=== PATIENT | female | born 1990 | race Caucasian/White ===

== ENCOUNTER 2016-11-01 09:08 | Day surgery (SDC) | payer OTHER ==
[~2016-11-01] VITALS: Ht 167.6 cm; Wt 89.7 kg
[2016-11-01] VITALS (14 sets, daily range): BP systolic 83–111; BP diastolic 34–58; PULSE 58–80; RESP 16–29; Ht 167.6 cm; Wt 89.7 kg
[2016-11-01] MEDS ORDERED: SULF1TAB31 PO (09:55)
[2016-11-01 10:45] LABS: BASOPHILS % 0.3 % (0.0-2.0); EOSINOPHILS % 0.3 % (0.0-7.0); HEMATOCRIT 34.5 % (37.0-47.0); HEMOGLOBIN 11.3 g/dl (12.0-16.0); LYMPHOCYTES # 2.8 10^3/ul (0.8-2.9); LYMPHOCYTES % 31.9 % (15.0-51.0); MEAN CORPUSCULAR HGB CONC 32.8 g/dl (32.0-37.0); MEAN CORPUSCULAR VOLUME 85.6 fl (82.0-101.0); MEAN PLATELET VOLUME 10.6 fl (7.4-10.4); MONOCYTE # 0.5 10^3/ul (0.3-0.9); MONOCYTES % 5.4 % (0.0-11.0); NEUTROPHIL # 5.4 10^3/ul (1.6-7.5); NEUTROPHILS % 61.8 % (39.0-77.0); PLATELET COUNT 307 10^3/UL (140-415); RED BLOOD COUNT 4.03 10^6/ul (4.20-5.40); RED CELL DISTRIBUTION WIDTH 13.1 % (11.5-14.5); WHITE BLOOD COUNT 8.8 10^3/ul (4.8-10.8)
[2016-11-01 10:48] LABS: ADD UMIC NO; UR ASCORBIC ACID NEGATIVE (NEGATIVE); UR BILIRUBIN (Dip) NEGATIVE (NEGATIVE); UR BLOOD (Dip) NEGATIVE (NEGATIVE); UR CLARITY CLEAR (CLEAR); UR COLOR YELLOW (YELLOW); UR GLUCOSE (Dip) NEGATIVE (NEGATIVE); UR KETONES (Dip) NEGATIVE (NEGATIVE); UR LEUKOCYTE ESTERASE (Dip) NEGATIVE Leu/ul (NEGATIVE); UR NITRITE (Dip) NEGATIVE (NEGATIVE); UR TOTAL PROTEIN (Dip) NEGATIVE (NEGATIVE); UR UROBILINOGEN (Dip) NEGATIVE (NEGATIVE)
[2016-11-01 10:59] LABS: INR 1.01; PROTIME 13.3 Sec (12.2-14.2)
[2016-11-01 11:02] LABS: ALBUMIN 4.2 g/dl (3.3-4.9); ALBUMIN/GLOBULIN RATIO 1.13; BILIRUBIN,INDIRECT 0.2 mg/dl (0-1.1); BILIRUBIN,TOTAL 0.2 mg/dl (0.2-1.3); TOTAL PROTEIN 7.9 g/dl (6.1-8.1)
[2016-11-01 11:21] LABS: CALCIUM 9.3 mg/dl (8.4-10.2); CREATININE 0.63 mg/dl (0.44-1.00); POTASSIUM 3.8 mmol/L (3.5-5.1)
[2016-11-01] MEDS ORDERED: PROPOFOL 20 ML ONE (12:25)
[2016-11-01] MEDS ORDERED: ONDANSETRON 4 MG INJ ONE (12:25)
[2016-11-01] MEDS ORDERED: METOCLOPRAMIDE 10 MG INJ ONE (12:25)
[2016-11-01] MEDS ORDERED: MEPERIDINE 100 MG INJ ONE (12:25)
[2016-11-01] MEDS ORDERED: LIDOCAINE 2% (SDV) 5 ML INJ ONE (12:25)
[2016-11-01] MEDS ORDERED: LIDOCAINE 1% (MPF) 30 ML INJ ONE (13:06)
[2016-11-01] MEDS ORDERED: CEFAZOLIN 1 GM INJ ONE (13:07)
[2016-11-01] MEDS ORDERED: KETOROLAC 30 MG INJ IV STA ×2 (13:50→13:55)
--- NOTE | 2016-11-01 13:59 | QN ---
Documentation Comment Toradol 30 mg before discharge from [facility] TATE ANAYA MD Nov 01, 2016 13:59
[2016-11-01] MEDS ORDERED: FENTAnyl 50 MCG/ML VIAL IV PRN ×3 (14:00)
[2016-11-01] MEDS ORDERED: ONDANSETRON 4 MG INJ IV PRN (14:00)
[2016-11-01] MEDS ORDERED: HYDROmorphONE (0.2 MG/ML) 10ML SYG IV PRN ×3 (14:00)
[2016-11-01] MEDS ORDERED: DIPHENHYDRAMINE 50 MG INJ IV PRN (14:00)
[2016-11-01] MEDS ORDERED: METOCLOPRAMIDE 10 MG INJ IV PRN (14:00)
[2016-11-01] MEDS ORDERED: MIDAZOLAM 1 MG/ML 2 ML INJ IV PRN (14:00)
[2016-11-01] MEDS ORDERED: MEPERIDINE 25 MG INJ IV PRN (14:00)
[2016-11-01] MEDS ORDERED: OXYCODONE/ACETAMINOPHEN (5/325) TAB PO PRN ×2 (14:00)
--- NOTE | 2016-11-01 14:20 | OPR ---
Date/Time of Note Date/Time of Note DATE: 11/01/16 TIME: 14:05 Operative Report Free Text/Dictation 26 years old admitted for right Bartholin gland abscess Preoperative Diagnosis Right Bartholin gland abscess Postoperative Diagnosis Same as above Operation/Procedure Performed Marsupialization of right Bartholin abscess Under general anesthesia patient prepped and draped and placed in dorsal lithotomy position bimanual pelvic examination normal measures introitus right Bartholin gland inflamed and enlarged size of a golf ball left Bartholin gland seems to be normal The opening of the abscess was enlarged with a Taylor clamp for ciliated more drainage of the pus inside of the cavity irrigated with warm saline and adhesion inside of the taken down by finger inside of the gland irrigated more with warm saline, age of opening of the Bartholin cyst which was through the site 1 cm x 1 cm suture with interrupted 3-0 Monocryl approximate 3 mm apart at the end of the procedure there was no bleeding , the cavity was packed with quarter of inch packing, patient tolerated procedure well transferred to recovery room in good condition Surgeon: TATE ANAYA MD Anesthesia: general Estimated Blood Loss: 0 - 10 ml's Complications: None TATE ANAYA MD Nov 01, 2016 14:16
--- NOTE | 2016-11-02 06:22 | OPR ---
DATE OF OPERATION: 11/01/2016 PREOPERATIVE DIAGNOSIS: Right Bartholin abscess. POSTOPERATIVE DIAGNOSIS: Right Bartholin abscess. OPERATION PERFORMED: Marsupialization of the right Bartholin gland. SURGEON: MD Malachi. APARTMENT GROUNDSKEEPER: Gibran. ANESTHESIA: General. ANESTHESIOLOGIST: Dr. Barron. OPERATIVE PROCEDURE: Under satisfactory general anesthesia, patient prepped and draped and placed peripherally toward the mid position. On pelvic examination, the right Bartholin abscess was noted, which was approximately 3-4 cm, and it had some pus draining. The left side was normal. Procedure began by irrigating the inside of the Bartholin cyst and draining all the pus from the cavity. Then the edge of the Bartholin gland was sutured with interrupted 3-4 mm apart with 3-0 Monocryl. At the end of procedure, quarter-inch drain was inserted inside of the Bartholin cavity. ESTIMATED BLOOD LOSS: 5 cc or less. The patient tolerated the procedure well, transferred to recovery room in good condition. Dictated By: Татьяна Ly MD /[email or web address]/ginger /Document#: [id number]
== END 2016-11-01 16:35 | disposition home or self-care (01) ==
LOC: SDS 09:08
PROVIDERS: ATTEND Obstetrics & Gynecology
DX: N75.1 Abscess of Bartholin's gland (principal); E66.9 Obesity, unspecified; Z68.31 Body mass index [BMI] 31.0-31.9, adult
CPT/HCPCS: 56440; 80053; 81003; 84703; 85025; 85610; 85730; 86850; 86900; 86901; J0690; J1885; J2175; J2405; J2765; Z7512; Z7610